=== PATIENT | female | born 1960 | race Two or more races ===

== ENCOUNTER 2020-08-20 10:13 | Emergency (ER) | payer MEDICAID, OTHER ==
[~2020-08-20] VITALS: Ht 162.6 cm; Wt 81.6 kg
[2020-08-20 10:26] VITALS: BP 130/77
== END 2020-08-20 11:02 | disposition home or self-care (01) ==
LOC: ER 10:13
DX: B02.9 Zoster without complications (principal)

== ENCOUNTER 2022-12-07 09:26 | Emergency (ER) | payer MEDICAID ==
[~2022-12-07] VITALS: Ht 160 cm; Wt 85.9 kg
[2022-12-07] MEDS ORDERED: KETOROLAC TROMETH 60MG/2ML VIAL IM ONE (11:30)
[2022-12-07] MEDS ORDERED: GABA300C10 PO (11:50)
[2022-12-07] MEDS ORDERED: IBUP800T27 PO (11:50)
[2022-12-07 11:55] VITALS: BP 141/77
== END 2022-12-07 11:56 | disposition home or self-care (01) ==
LOC: ER 09:26
DX: G89.29 Other chronic pain (principal); M54.50 Low back pain, unspecified; M79.605 Pain in left leg; M79.604 Pain in right leg; M54.16 Radiculopathy, lumbar region
CPT/HCPCS: 93970; 96372; 99285; J1885